=== PATIENT | female | born 1960 | race Caucasian/White ===

== ENCOUNTER → 2017-09-29 | Outpatient (CLI) | payer OTHER ==
[~2017-09-29] MED LIST: CIT20 PO; LEVO25TA56 PO; OMEP-137 PO
--- NOTE | 2017-10-02 08:31 | RADIOLOGY IMAGING REPORT ---
FACILITY: [facility] - [place] PATIENT NAME: ANTWAN OROSCO : [id number] MR: [id number] V: [id number] EXAM DATE: ORDERING PHYSICIAN: PARUL TORRES TECHNOLOGIST: Michelle Birmingham PROCEDURE:BILATERAL DIGITAL SCREENING MAMMOGRAM WITH CAD ASSISTED INTERPRETATION & 3D TOMOSYNTHESIS COMPARISON:09/28/16 & priors to 08/22/13 INDICATIONS:SCREENING FINDINGS: The breasts have scattered fibroglandular parenchymal densities. There are no mammographic findings concerning for malignancy. There is no significant interval change. DIAGNOSTIC CATEGORY 1--NEGATIVE. RECOMMENDATIONS: ROUTINE MAMMOGRAM AND CLINICAL EVALUATION. Follow up mammogram in 1 year. IMPRESSION: BIRADS 1: Negative. Dictated by: Romero Kaufman on 09/29/2017 at 12:13 Transcribed by: DERICK on 09/29/2017 at 12:44 Approved by: Bear Macias M.D. on 10/02/2017 at 8:30 [facility]
== END ==
LOC: MAMO 02:11
PROVIDERS: ATTEND Nurse Practitioner Family
DX: Z12.31 Encounter for screening mammogram for malignant neoplasm of breast (principal)

== ENCOUNTER → 2017-10-31 | Outpatient (CLI) | payer OTHER ==
--- NOTE | 2017-10-31 14:15 | RADIOLOGY IMAGING REPORT ---
[place] [facility] [place] NAME: Lillian Alvarez : 1960 MR: [id number] V: [id number] EXAM DATE: ORDERING PHYSICIAN: PARUL TORRES TECHNOLOGIST: Location: [facility] - [place] Patient: Lillian Alvarez : 1960 Visit/Account:[id number] Date of Sevice: 10/31/2017 DEXA Scan Clinical history: Family history of osteoporosis. Comparison: DEXA scan from 09/28/2016. LUMBAR SPINE: The bone mineral density (BMD) measured from L1-L4 correlates with a Z-score of 1 and a T-score of 0. 5 which is Normal as defined by the World Health Organization. The corresponding risk of fracture in the lumbar spine is Not increased compared with a young adult reference population. This value has increased by 0.2 % since the prior study. More than 5% change is considered significant. HIP: Bone mineral density (BMD) measured in the LEFT total hip region correlates with a Z-score -0.4 and a T-score of -0.9 which is normal as defined by the World Health Organization. The corresponding risk of fracture in the hip is 1-2 t imes increased compared to a young adult reference population. This value has increased by 2.2 % sinc e the prior study. More than 5% change is considered significant. T score left femoral neck -1 Bone mineral density (BMD) measured in the Femoral Neck region measures 0.902 g/cm?. IMPRESSION: 1. Lumbar spine: Normal. There has been 0.2% increase in the bone mineral density since the previou s exam. 2. Left Total Hip: Normal. There has been 2.2% increase in the bone mineral density since the previ ous exam. 3. Femoral Neck: Bone Mineral Density is 0.902 g/cm? The next DEXA scan of this patient should include the following sites: L1-L4 and the left hip. FRAX? WHO Fracture Risk Assessment Tool link: <http://www.shef.ac.uk/FRAX/tool.jsp?locationValue=9> PLEASE NOTE: 1) The World Health Organization defines low BMD as follows: T-score Normal > -1 Osteopenia < -1 and > -2.5 Osteoporosis < -2.5 without fractures Established osteoporosis < -2.5 with fractures 2) In general, you may wish to consider: Diagnosis Treatment Follow-up DEXA Normal BMD Prevention 2-3 years Osteopenia Prevention/therapy 1-2 years Osteoporosis Therapy Yearly 3) Fracture risk estimated from the T-score is more accurate for vertebral fractures (often spontane ous) than for hip fractures. Report Dictated By: Parul Cedeño MD at 10/31/2017 2:10 PM Report E-Signed By: Parul Cedeño MD at 10/31/2017 2:11 PM WSN:[email or web address]
== END ==
LOC: RAD 13:31
PROVIDERS: ATTEND Nurse Practitioner Family
DX: Z13.820 Encounter for screening for osteoporosis (principal)
CPT/HCPCS: 77080